=== PATIENT | female | born 2000 ===

== ENCOUNTER 2022-05-07 00:23 | Emergency (ER) | payer MEDICAID ==
[~2022-05-07] VITALS: Ht 165.1 cm; Wt 74.0 kg
[2022-05-07 01:40] LABS: Basophils # (auto) 0.1 10 ^3/uL (0-0.2); Basophils % (auto) 0.4 % (0.0-2.0); Eosinophils # (auto) 0.1 10 ^3/uL (0-0.8); Eosinophils % (auto) 0.4 % (0.0-7.0); Hematocrit 42.3 % (36.0-46.0); Hemoglobin 14.4 g/dL (12.2-16.2); Lymphocytes # (auto) 1.6 10 ^3/uL (0.4-5.4); Lymphocytes % (auto) 12.1 % (10.0-50.0); Mean Corpuscular Hemoglobin 28.4 pg (28.0-32.0); Mean Corpuscular Hgb Conc. 34.1 g/dL (32.0-36.0); Mean Corpuscular Volume 83.4 fL (80.0-100.0); Monocytes % (auto) 7.7 % (0.0-12.0); Neutrophils # (auto) 10.5 10 ^3/uL (1.6-8.6); Neutrophils % (auto) 79.4 % (37.0-80.0); Nucleated Red Blood Cells % 0.1 %; Red Blood Cells 5.07 10^6/uL (4.0-5.20); Red Cell Distribution Width 13.6 % (11.8-14.3); White Blood Cell 13.2 10^3/uL (4.4-10.8)
[2022-05-07 01:56] LABS: Albumin 4.3 g/dL (3.4-5.0); BUN/Creatinine Ratio 16.4; Calcium 9.6 mg/dL (8.5-10.1); Potassium 3.4 mmol/L (3.5-5.1)
[2022-05-07 01:59] LABS: Bilirubin, Total 1.6 mg/dL (0.2-1.0); Total Protein 8.4 g/dL (6.4-8.2)
[2022-05-07 02:11] LABS: Urine Bacteria FEW /hpf (None Seen); Urine Blood Negative /uL (Negative); Urine Mucus FEW (None Seen); Urine Specific Gravity 1.033 (1.001-1.035); Urine WBC 2 /hpf (0 - 5)
[2022-05-07] MEDS ORDERED: ONDA-144 PO (05:44)
[2022-05-07] MEDS ORDERED: CEFP200T15 PO (05:44)
[2022-05-07 06:29] VITALS: BP 125/69
== END 2022-05-07 07:08 | disposition home or self-care (01) ==
LOC: ER 00:23
DX: O21.8 Other vomiting complicating pregnancy (principal); K52.9 Noninfective gastroenteritis and colitis, unspecified; R82.4 Acetonuria; R82.71 Bacteriuria; Z53.21 Procedure and treatment not carried out due to patient leaving prior to being seen by health care provider; Z3A.01 Less than 8 weeks gestation of pregnancy
CPT/HCPCS: 36415; 76801; 80053; 81001; 81025; 84702; 85025